=== PATIENT | male | born 1950 | race Caucasian/White ===

== ENCOUNTER 2021-02-16 11:20 | Day surgery (SDC) | payer MEDICARE ==
[2021-02-16] VITALS (8 sets, daily range): BP systolic 129–158; BP diastolic 70–81
[~2021-02-16] VITALS: Ht 170.2 cm; Wt 96.9 kg
[2021-02-16] MEDS ORDERED: VANCOMYCIN 1,500MG inj. 1,500 MG in normal saline 500ml IV soln 300 ML IV ONE (11:50)
[2021-02-16] MEDS ORDERED: cefazolin/dext.iso 2gm/100ml 100 ML IV ONE (11:50)
[2021-02-16] MEDS ORDERED: normal saline 1,000 ML IV SCH (11:50)
[2021-02-16] MEDS ORDERED: MULT-1085 PO (12:17)
[2021-02-16] MEDS ORDERED: CARV25TA2 PO (12:17)
[2021-02-16] MEDS ORDERED: ASPI-1397 PO (12:17)
[2021-02-16] MEDS ORDERED: POTA10TA PO (12:17)
[2021-02-16] MEDS ORDERED: SACU1TAB7 PO ×2 (12:17)
[2021-02-16] MEDS ORDERED: FURO40TA4 PO (12:17)
[2021-02-16 12:51] LABS: BASOPHILS # (AUTO) 0.1 X10'3 (0-0.2); BASOPHILS % (AUTO) 1.1 % (0-1); EOSINOPHILS # (AUTO) 0.2 X10'3 (0-0.9); EOSINOPHILS % (AUTO) 2.6 % (0-6); HEMATOCRIT 48.7 % (42.0-52.0); HEMOGLOBIN 16.3 g/dl (14.0-17.9); LYMPHOCYTES # (AUTO) 1.6 X10'3 (1.1-4.8); LYMPHOCYTES % (AUTO) 19.7 % (21-51); MEAN CORPUSCULAR HEMOGLOBIN 30.2 PG (27.0-31.0); MEAN CORPUSCULAR HGB CONC 33.5 g/dL (33.0-36.5); MEAN PLATELET VOLUME 9.2 FL (7.4-10.4); MONOCYTES # (AUTO) 0.6 X10'3 (0-0.9); MONOCYTES % (AUTO) 7.9 % (2-12); NEUTROPHILS # (AUTO) 5.5 X10'3 (1.8-7.7); NEUTROPHILS % (AUTO) 68.7 % (42-75); PLATELET COUNT 218 X10'3 (140-440); RED BLOOD COUNT 5.41 X10'6 (4.70-6.10); WHITE BLOOD COUNT 7.9 X10'3 (4.5-11.0)
[2021-02-16 13:03] LABS: ALBUMIN 3.3 G/DL (3.4-5.0); ANION GAP 9 (8-16); BLOOD UREA NITROGEN 20 MG/DL (7-18); BUN/CREATININE RATIO 14.8 (5.4-32.0); CALCIUM 8.7 MG/DL (8.5-10.1); CHLORIDE 107 MMOL/L (99-107); CREATININE 1.35 MG/DL (0.60-1.10); GLUCOSE 164 MG/DL (70-104); POTASSIUM 4.3 MMOL/L (3.5-5.1); SODIUM 143 MMOL/L (135-145); TOTAL CARBON DIOXIDE 27.2 MMOL/L (24-32); eGFR 52 ML/MIN
[2021-02-16] MEDS ORDERED: midazolam 1 mg/ML 2ml injection ONE ×3 (13:17→14:09)
[2021-02-16] MEDS ORDERED: LIDOCAINE 2% w/EPI 1:100:000 30mL injection MDV**cath lab 1 only ONE (13:17)
[2021-02-16] MEDS ORDERED: fentaNYL/PF 50MCG/1 ML 2ML syringe ONE ×2 (13:17→14:09)
[2021-02-16] MEDS ORDERED: vancomycin 1,000mg inj ONE (13:17)
[2021-02-16] MEDS ORDERED: HYDROcodone/acetaminophen 10/325mg tab PO PRN (15:10)
[2021-02-16] MEDS ORDERED: HYDROcodone/acetaminophen 5mg/325mg tablet PO PRN (15:10)
== END 2021-02-16 16:40 | disposition home or self-care (01) ==
LOC: SSTAY O 11:20
PROVIDERS: ATTEND Internal Medicine Cardiovascular Disease
DX: I42.0 Dilated cardiomyopathy (principal); I25.10 Atherosclerotic heart disease of native coronary artery without angina pectoris; I11.0 Hypertensive heart disease with heart failure; I50.22 Chronic systolic (congestive) heart failure; J44.9 Chronic obstructive pulmonary disease, unspecified; Z79.899 Other long term (current) drug therapy; Z87.891 Personal history of nicotine dependence; Z72.89 Other problems related to lifestyle; Z82.3 Family history of stroke; Z80.1 Family history of malignant neoplasm of trachea, bronchus and lung
CPT/HCPCS: 33249; 36415; 71045; 80048; 83735; 85025; 85610; 93005; 99152; 99153; C1722; C1777; C1894; J2250; J3010; J3370; J7030; J7040; A4565; A6258